=== PATIENT | female | born 1985 | race Caucasian/White ===

== ENCOUNTER 2024-01-19 16:41 | Emergency (ER) | payer OTHER, SELFPAY ==
--- NOTE | ~2024-01-19 | CT_ITS ---
EXAMINATION: CT orbit BI w con DATE: 01/19/2024 21:06 INDICATION: Right orbital infection. TECHNIQUE: Computed tomography (CT) of the orbits was performed without intravenous contrast. Automat ed exposure control and iterative reconstruction technique were employed. The dose-length product was 175.68 mGy-cm. COMPARISON: None FINDINGS: The orbits are normal. The extraocular muscles are normal. There is mild mucosal thickening in the paranasal sinuses. The mastoid air cells are normal. IMPRESSION: 1. Normal orbits. Reviewed, dictated and finalized at location E. IMPRESSION: 1. Normal orbits.
[2024-01-19 16:51] VITALS: BP 149/97; PULSE 79; RESP 18; TEMP 36.4; O2SAT 100
--- NOTE | 2024-01-19 19:47 | ED.EYEPROB ---
HPI - Eye Problem General Chief complaint: Eye Problems Stated complaint: eye sent in for labs and CT scan Time Seen by Provider: 01/19/24 19:13 History of Present Illness HPI Narrative: Patient a 38-year-old female who presents to the emergency department this evening complaining of right eye pain. Patient states that approximately 2 weeks ago she was diagnosed orbital cellulitis and finished a course of doxycycline and Keflex. Patient was seen by an eye doctor and referred to an oculoplastic specialist at [facility]. Patient states that she finished her antibiotics approximately 1 week ago and today she woke up with a red spot over her right eyelid and pain and pressure that she feels behind her eye. Patient states that when she was 1st diagnosed with the orbital cellulitis symptoms started similarly the patient believes that now they are progressing much faster than they did initially. Patient called her doctor today at [facility] who recommended that she comes to the emergency department for blood work and CT of her orbits to evaluate for orbital cellulitis and possible IV antibiotics. Patient denies any changes to her vision, however, she does state that she has been having a hard time focusing on her computer screen while working. She denies any pain extraocular movements and denies any fevers at home. Patient states that today she did have some chills. No additional symptoms or concerns at this time. Related Data Allergies Allergy/AdvReac Type Severity Reaction Status Date / Time No Known Allergies Allergy Verified 01/19/24 16:42 Review of Systems Review of Systems: All systems are reviewed and are negative unless stated otherwise in the HPI. [facility] Social History Social History Smoking status: Former smoker Alcohol intake: current Exam Narrative: General: Alert, awake, afebrile, in no acute distress. HEENT: PERRL, erythema noted to the medial aspect of the right upper eyelid, no conjunctival injection, no proptosis, no chemosis, no pain with extraocular movements, no evidence of orbital or periorbital cellulitis at this time. Cardiovascular: Regular rate and rhythm, no murmurs, rubs or gallops, no peripheral edema. Respiratory: Clear to auscultation bilaterally, no tachypnea, no wheezing, no rhonchi, no rubs, no respiratory distress. Abdomen: Soft, nontender, nondistended, no rebound, no guarding, no peritoneal signs. Musculoskeletal: No joint swelling or deformity, normal muscle tone. Skin: No rashes or petechia, no signs of infection. Psychiatric: Alert and oriented, normal behavior and judgment for situation. Neurological: Alert and oriented to person, place, and time. Follows all commands. No focal deficits, speech is clear and fluent. Course Vital Signs Vital signs: Vital Signs Temperature 97.6 F 01/19/24 16:51 Pulse Rate 79 01/19/24 16:51 Respiratory Rate 18 01/19/24 16:51 Blood Pressure 149/97 H 01/19/24 16:51 Pulse Oximetry 100 01/19/24 16:51 Oxygen Delivery Room Air 01/19/24 16:51 Temperature 97.6 F 01/19/24 16:51 Pulse Rate 73 01/19/24 20:51 Respiratory Rate 18 01/19/24 20:51 Blood Pressure 138/75 01/19/24 20:51 Pulse Oximetry 99 01/19/24 20:51 Oxygen Delivery Room Air 01/19/24 16:51 MDM - Eye Problem MDM Narrative Medical decision making narrative: The patient was evaluated by myself in the emergency department. History is obtained from patient who is an independent historian and physical exam was performed. External medical records were reviewed at this time. IV was established and pertinent tests were ordered. Laboratory results obtained revealing no acute process. Inflammatory markers were obtained including CRP and ESR noted to be within normal limits. Imaging studies obtained included CT orbits with IV contrast which was independently interpreted by me re
[2024-01-19 19:54] LABS: Basophils Absolute Auto 0.1 K/mm3 (0.0-0.1); Basophils Percent Auto 0.9 % (0.2-1.2); Eosinophils Absolute Auto 0.1 K/mm3 (0-0.3); Eosinophils Percent Auto 2.1 % (0-4.4); Hematocrit 41.7 % (37.0-47.0); Hemoglobin 13.5 g/dL (12.0-15.0); Immature Granulocyte Absolute 0.02 K/mm3 (0.00-0.031); Immature Granulocyte Percent A 0.3 % (0-0.5); Lymphocytes Absolute Auto 2.67 K/mm3 (0.9-3.2); Lymphocytes Percent Auto 39.2 % (18.3-44.2); Mean Corpuscular HGB Conc 32.4 g/dl (32-36); Mean Corpuscular Hemoglobin 31.6 pg (26-34); Mean Corpuscular Volume 97.7 fl (80-100); Monocytes Percent Auto 15.3 % (2.6-8.5); Neutrophils Absolute Auto 2.9 K/mm3 (1.3-6.7); Neutrophils Percent Auto 42.2 % (45.5-73.1); Platelet Count Result 251 k/mm3 (150-375); Red Blood Count 4.27 M/mm3 (4.2-5.4); Red Cell Distribution Width 12.4 % (11.5-14.5); White Blood Count 6.8 K/mm3 (4.5-10.0)
[2024-01-19 20:09] LABS: Alanine Aminotransferase 49 U/L (6-35); Albumin Level 4.8 g/dL (3.5-5.1); Alkaline Phosphatase 43 U/L (38-126); Anion Gap 6 mmol/L (4-12); Aspartate Amino Transferase 38 U/L (14-36); Bilirubin,Total 0.6 mg/dL (0.2-1.3); Blood Urea Nitrogen 16 mg/dL (7-17); Calcium 9.3 mg/dL (8.4-10.2); Carbon Dioxide 26 mmol/L (22-30); Chloride 104 mmol/L (98-107); Estimated CRCL calculation 91 ml/min; Estimated Glomerular Filt Rate > 60; Glucose 91 mg/dL (65-110); SPREG INTERNAL CONTROL Positive; Serum Qual hCG Negative; Sodium 136 mmol/L (137-145)
[2024-01-19 20:34] LABS: Erythrocyte Sedimentation Rate 17 mm/hr (0-20)
[2024-01-19 20:51] VITALS: BP 138/75; PULSE 73; RESP 18; O2SAT 99
[2024-01-19 21:28] LABS: CRP < 0.5 mg/dL (<1.0)
== END 2024-01-19 22:29 | disposition home or self-care (01) ==
PROVIDERS: Emergency Provider Emergency Medicine
DX: H44.001 Unspecified purulent endophthalmitis, right eye (principal); Z87.891 Personal history of nicotine dependence
CPT/HCPCS: 36415; 70481; 80053; 84703; 85025; 85652; 86140; 99284; Q9967

== ENCOUNTER 2024-04-11 13:27 | Emergency (ER) | payer OTHER, SELFPAY ==
[2024-04-11 13:31] VITALS: BP 124/73; PULSE 80; RESP 16; TEMP 36.8; O2SAT 100
--- NOTE | 2024-04-11 13:39 | ED.HEATRA ---
HPI - Head Injury General Chief complaint: Head Injury Stated complaint: head injury Time Seen by Provider: 04/11/24 13:36 History of Present Illness HPI Narrative: 38-year-old female presents to the emergency room for evaluation of head injury. Patient states she was lifting boxes when the wood door struck her on the side of the head. Injury occurred 30 minutes prior to arrival. Patient is not on any anticoagulants. Denies LOC altered mental status. Denies nausea vomiting. Denies dizziness or lightheadedness. Denies supplements. Denies vision or hearing changes. Denies neck pain. Related Data Allergies Allergy/AdvReac Type Severity Reaction Status Date / Time No Known Allergies Allergy Verified 01/19/24 16:42 Review of Systems Review of Systems: ROS unremarkable except for noted in HPI PMFSH Social History Social History Smoking status: Former smoker Alcohol intake: current Exam Narrative: GENERAL: Well-appearing, well-nourished, no physical limitations, and in no acute distress. HEAD: Normocephalic, 1 cm laceration to left side of scalp EYES: Conjunctivae normal, PERRLA and EOMI. ENT: External nose normal, Nares clear, no rhinorrhea or epistaxis. External ears normal, bilateral TMs normal bilaterally NECK: Supple. CHEST: Clear to auscultation. No respiratory distress. No wheezes rales or rhonchi. HEART: Regular rate and rhythm. No murmur heard. Normal peripheral pulses. BACK: No cervical/thoracic/lumbar tenderness, step-offs, bony abnormality; FROM EXTREMITIES: Normal range of motion. No edema. No clubbing or cyanosis SKIN: Warm, dry, no rash. No noted wounds NEURO: No focal deficits. Alert and oriented x3. MAEW. CN's II-XI intact bilaterally, normal gait PSYCH: Cooperative. Normal mood and affect. Course Vital Signs Vital signs: Vital Signs Temperature 36.8 C 04/11/24 13:31 Pulse Rate 80 04/11/24 13:31 Respiratory Rate 16 04/11/24 13:31 Blood Pressure 124/73 04/11/24 13:31 Pulse Oximetry 100 04/11/24 13:31 Temperature 36.8 C 04/11/24 13:31 Pulse Rate 80 04/11/24 13:31 Respiratory Rate 16 04/11/24 13:31 Blood Pressure 124/73 04/11/24 13:31 Pulse Oximetry 100 04/11/24 13:31 Procedures Laceration Laceration 1: Date: 04/11/24 Time: 13:54 Site: scalp Side (If applicable): right Size (cm): 1 Description: linear Depth: simple, single layer Local Anesthetic: none Pre-repair: irrigated ====== Skin Level ====== Skin layer closed with: osmar Number of sutures: 2 ====== Subcutaneous Layer ====== ====== Muscle Layer ====== ====== Tendon Layer ====== Discharge Plan Discharge Clinical Impression: Closed head injury, Laceration of scalp Patient Disposition: Home, Self-Care Condition: Stable Instructions: Antibiotic Form, Head Injury (ED) Additional Instructions: osmar will need to be removed in 7 days. He may go urgent care removed. Keep wound clean and dry. Located washer with shampoo. Under for signs of infection which include redness, swelling, pain, purulent dischar Prescriptions: No Action amoxicillin-pot clavulanate 875-125 mg tablet 1 tablet PO Q12H 10 Days Qty: 20 0RF Follow-up/Referrals: UNKNOWN,DOCTOR [Primary Care Provider] - Time of Disposition: 13:55
== END 2024-04-11 14:05 | disposition home or self-care (01) ==
LOC: ANHED 14:08
PROVIDERS: Emergency Provider Nurse Practitioner Family
DX: S01.01XA Laceration without foreign body of scalp, initial encounter (principal); Z87.891 Personal history of nicotine dependence; W22.8XXA Striking against or struck by other objects, initial encounter
CPT/HCPCS: 12001; 99283

== ENCOUNTER 2025-05-01 11:34 | Emergency (ER) | payer OTHER, SELFPAY ==
[2025-05-01 11:35] VITALS: BP 127/86; PULSE 87; RESP 16; TEMP 36.6; O2SAT 100
--- OUTSIDE RECORDS SUMMARY | 2025-05-01 12:13 | XMS_ITS | Clinical Summary ---
Author Organization [facility] Virtual Care Address [address] [place] [id number] Phone Care Team Providers Care Oil Well Service Operator Helper Name Role Phone Unknown, Notinfile Primary Care Provider Unavail able Allergies No known active allergies Medications buPROPion XL (WELLBUTRIN XL) 150 mg 24 hr tablet Take 1 tablet (150 mg total) by mouth daily Active levothyroxine (SYNTHROID) 100 mcg tablet Take 1 tablet (100 mcg total) by mouth daily Active neomycin-polymy zeyad B-dexAMETHasone (MAXITROL) 3.5 mg/g-10,000 unit/g-0.1 % ointment Apply to affected eye(s) 3 (three) times a day 06/19/2024 Active norethindrone-e .estradioL-iron (Blisovi Fe ,) 1 mg-20 mcg (21)/75 mg (7) per tablet Take 1 tablet by mouth daily 02/14/2024 Active Active Problems No known active problems Social History Tobacco Use Types Packs/Day Years Used Date Smoking Tobacco: Never Assessed Comments Unknown Sex and Gender Information Value Date Recorded Sex Assigned at Not on file Legal Sex Female 10:05 AM CDT Gender Identity Not on file Sexual Orientation Not on file Obstetrics History Last Filed Vital Signs Vital Sign Reading Time Taken Comments Blood Pressure 110/74 10/02/2024 4:52 PM ANALYSIS LEAD Pulse 72 10/02/2024 4:52 PM ANALYSIS LEAD Temperature 36.9 C (98.5 F) 10/02/2024 4:52 PM ANALYSIS LEAD Respiratory Rate 16 10/02/2024 4:52 PM ANALYSIS LEAD Oxygen Saturation 99% 10/02/2024 4:52 PM ANALYSIS LEAD Inhaled Oxygen Concentration - - Weight 86.6 kg (191 lb) 10/02/2024 4:52 PM ANALYSIS LEAD Height 177.2 cm (5' 9.75) 10/02/2024 4:52 PM CS T Body Mass Index 27.6 10/02/2024 4:52 PM ANALYSIS LEAD Plan of Treatment Health Maintenance Due Date Last Done Comments Cervical Cancer Screening 1986 Depression Screening 1986 Hepatitis C Screening 1986 Varicella Vaccines (1 of 2 - 13+ 2-dose series) 1999 Regular Well Visit/Exam 18-64 2004 HPV Vaccines (1 - 3-dose SCD M series) 2013 Influenza Vaccine (#1) 2025 DTaP/Tdap/Td Vaccine (2 - Td or Tdap) 01/05/2031 01/05/2021 Hepatitis B Screening Completed 01/05/2021 Pneumococcal vaccine <65 Aged Out No longer eligible based on patient's age to complete this topic Insurance [employer] Care Teams Oil Well Service Operator Helper Relationship Specialty Start Date End Date Unknown, Notinfile PCP - General 10/02/24
--- OUTSIDE RECORDS SUMMARY | 2025-05-01 12:13 | XMS_ITS | Clinical Summary ---
Author Organization [facility] Address [address] [place] [address] Care Team Providers Care Heel Seat Fitter Machine Name Role Phone Calixto Santos MD Primary Care Provider [phone] Source Comments [facility],non-owned Affiliates and Associated Physician Practices is amultiple site organization consisting of ambulatory clinics and hospital sitesin [place], [place], [place] and [place]. This disclosure is being madepursuant to the Care Everywhere program and may not contain all information available regarding this patient. Last updated 18.[facility] Allergies No known active allergies Medications * Be aware that medications may not be up to date on this document. Alwaysverify current medications with the patient. levothyroxine (SYNTHROID) 100 MCG tablet Take 100 mcg by mouth daily before breakfast Active buPROPion XL 24hr (WELLBUTRIN XL) 150 MG tablet Take 150 mg by mouth once daily Active Blisovi FE 10/15 1-20 MG-MCG tablet Take 1 (one) tablet by mouth once daily 4 Active neomycin-polymy zeyad-dexameth (Maxitrol) ophthalmic ointment Instill into left eye 3 times daily 3.5 g 4 Active Active Problems No known active problems Immunizations Immunization Administration Dates Next Due HEP B VACCINE, ADULT 3 DOSE 01/05/2021 MMR 01/05/2021 TDAP (7yrs+) 01/05/2021 Social History Tobacco Use Types Packs/Day Years Used Date Smoking Tobacco: Never Smokeless Tobacco: Never Comments No Sex and Gender Information Value Date Recorded Sex Assigned at Not on file Legal Sex Female 9:02 AM PROJECT CONTROLS SCHEDULER Gender Identity Not on file Sexual Orientation Not on file Last Filed Vital Signs Vital Sign Reading Time Taken Comments Blood Pressure 108/62 10/05/2017 10:57 AM PROJECT CONTROLS SCHEDULER Pulse 80 10/05/2017 10:57 AM PROJECT CONTROLS SCHEDULER Temperature 36.9 C (98.5 F) 10/05/2017 10:57 AM PROJECT CONTROLS SCHEDULER Respiratory Rate 16 10/05/2017 10:57 AM PROJECT CONTROLS SCHEDULER Oxygen Saturation 99% 10/05/2017 10:57 AM PROJECT CONTROLS SCHEDULER Inhaled Oxygen Concentration - - Weight 72.6 kg (160 lb) 10/05/2017 10:57 AM PROJECT CONTROLS SCHEDULER Height 177.8 cm (5' 10) 10/05/2017 10:57 AM PROJECT CONTROLS SCHEDULER Body Mass Index 22.96 10/05/2017 10:57 AM PROJECT CONTROLS SCHEDULER Plan of Treatment Health Maintenance Due Date Last Done Comments HIV SCREENING 2001 HEPATITIS C SCREENING 04/13/2004 PAP SMEAR 2007 HPV VACCINE (1 - 3-dose SCDM series) 2013 HEPATITIS B VACCINE (2 of 3 - 19+ 3-dose series) 02/02/2021 01/05/2021 COVID-19 VACCINE (1 - 2023-2 5 season) 2024 DEPRESSION SCREENING 09/26/2024 INFLUENZA VACCINE (#1) 2025 DTAP/TDAP/TD VACCINES (2 - T d or Tdap) 01/05/2031 01/05/2021 ZOSTER VACCINE (1 of 2) 2036 HIB VACCINE Aged Out No longer eligi ble based on patient's age to complete this topic MENINGOCOCCAL (Group B) VACC INE SHARED DECISION-MAKING Aged Out No longer eligibl e based on patient's age to complete this topic MENINGOCOCCAL GROUPS A/C/Y/W VACCINE Aged Out No longer eligible b ased on patient's age to complete this topic PNEUMOCOCCAL VACCINE Aged Out No long er eligible based on patient's age to complete this topic Insurance [facility] Address: [facility] [id number] [place] [address] Care Teams Heel Seat Fitter Machine Relationship Specialty Start Date End Date Calixto Santos MD [address] [place] [address] PCP - General Obstetrics and Gynecology 10/05/17
--- NOTE | 2025-05-01 12:33 | ECG_ITS ---
Test Date: 2025-05-01 13:13:30 Measurements Intervals [place] Rate: 82 P: 52 CA: 151 QRS: 65 QRSD: 81 T: 43 QT: 346 QTc: 406 Interpretive Statements SINUS RHYTHM BASELINE ARTIFACT- I, II, III, AVR, AVL, AVF NORMAL ECG No previous ECG available for comparison Electronically Signed On 05-01-2025 13:14:59 CDT by Sung Weldon D.O.
--- NOTE | 2025-05-01 12:51 | ED.RECABL ---
HPI - Recheck/Abnormal Lab/Rx General Chief Complaint: Recheck/Abnormal Lab/Rx <Sven Dorman APRN - Last Filed: 05/01/25 12:53> Stated Complaint: my doctor sent me to get blood <Sven Dorman APRN - Last Filed: 05/01/25 12:53> Time Seen by Provider: 05/01/25 13:40 <Sven Dorman APRN - Last Filed: 05/01/25 12:53> Focused HPI: 40-year-old female presents to the ER complaining of possible low hemoglobin. Patient sent from her OB office however labs recheck. Patient denies any black or tarry stools, vaginal bleeding and, vomiting blood, or any history of anemia. Patient reports she has been feeling lightheaded feeling she is going to pass out. Patient was told she had a hemoglobin of 7 and had lab work drawn yesterday. Patient's OB is Dr. Sherly Ryan. GENERAL: Well-appearing, well-nourished, and in no acute distress. HEAD: Normocephalic, atraumatic. CHEST: Clear to auscultation. ?No respiratory distress. HEART: Regular rate and rhythm.? NEURO: ?Alert and oriented x3. Patient screened in triage and initial orders placed.? ?Additional care and disposition to be based upon?diagnostic testing and treatment. <Sven Dorman APRN - Last Filed: 05/01/25 12:53> History of Present Illness HPI narrative: Agree with HPI. <Monroe Yo MD - Last Filed: 05/01/25 16:18> Related Data Allergies/Adverse Reactions: Allergies Allergy/AdvReac Type Severity Reaction Status Date / Time No Known Allergies Allergy Verified 05/01/25 11:39 <Sven Dorman APRN - Last Filed: 05/01/25 12:53> Review of Systems Review of Systems: All systems reviewed & are unremarkable except as noted in HPI and below <Monroe Yo MD - Last Filed: 05/01/25 16:18> Constitutional: Constitutional: Reports no additional constitutional complaints <Monroe Yo MD - Last Filed: 05/01/25 16:18> ENT: Reports system reviewed and no additional complaints, except as documented <Monroe Yo MD - Last Filed: 05/01/25 16:18> Cardiovascular: Cardiovascular: Reports no additional cardiovascular complaints <Monroe Yo MD - Last Filed: 05/01/25 16:18> Respiratory: Respiratory: Reports no additional respiratory complaints <Monroe Yo MD - Last Filed: 05/01/25 16:18> Gastrointestinal: Gastrointestinal: Reports no additional gastrointestinal complaints <Monroe Yo MD - Last Filed: 05/01/25 16:18> FOR[facility]LY [facility], [facility] Past Medical History Medical History: Medical History (Updated 05/01/25 @ 16:18 by Monroe Yo MD) Hypothyroidism <Sven Dorman APRN - Last Filed: 05/01/25 12:53> Social History Social History: Social History Smoking status: Former smoker Alcohol intake: current <Sven Dorman APRN - Last Filed: 05/01/25 12:53> Exam Narrative: GENERAL: Well-appearing, well-nourished, and in no acute distress. HEAD: Normocephalic, atraumatic. ENT: Mucous membranes moist. CHEST: Clear to auscultation. No respiratory distress. HEART: Regular rate and rhythm. Normal peripheral pulses. ABDOMEN: Soft, nontender, nondistended. EXTREMITIES: Normal range of motion. No edema. SKIN: Warm, dry, no rash. NEURO: Alert and oriented x3. PSYCH: Normal mood and affect. <Monroe Yo MD - Last Filed: 05/01/25 16:18> Course Course Emergency Course: Patient resting comfortably. No significant abnormality on lab work. No anemia requiring transfusion. Recommend follow-up with her primary care provider. <Monroe Yo MD - Last Filed: 05/01/25 16:18> Vital Signs Vital signs: Vital Signs Temperature 97.8 F 05/01/25 11:35 Pulse Rate 87 05/01/25 11:35 Respiratory Rate 16 05/01/25 11:35 Blood Pressure 127/86 05/01/25 11:35 Pulse Oximetry 100 05/01/25 11:35 Oxygen Delivery Room Air 05/01/25 11:35 Temperature 97.9 F 05/01/25 14:31 Pulse Rate 85 05/01/25 14:31 Respiratory Rate 14 05/01/25 14:31 Blood Pressure 100/77 05/01/25 14:31 Pulse Oximetry 99 05/01/25 14:31 Oxygen Delivery Room Air 05/01/25 11:35 <Sven Dorman APRN - Last Filed: 05/01/25 12:53> Vital Signs Temperature 97.8 F 05/01/25 11:35 Pulse Rate 87 05/01/25 11:35 Respiratory Rate 16 05/01/25 11:35 Blood Pressure 127/86 05/01/25 11:35 Pulse Oximetry 100 05/01/25 11:35 Oxygen Delivery Room Air 05/01/25 11:35 Temperature 97.9 F 05/01/25 14:31 Pulse Rate 85 05/01/25 14:31 Respiratory Rate 14 05/01/25 14:31 Blood Pressure 100/77 05/01/25 14:31 Pulse Oximetry 99 05/01/25 14:31 Oxygen Delivery Room Air 05/01/25 11:35 <Monroe Yo MD - Last Filed: 05/01/25 16:18> MDM - Recheck/Abnormal Lab/Rx Lab Data Result diagrams: 05/01/25 13:13 05/01/25 13:13 <Sven Dorman APRN - Last Filed: 05/01/25 12:53> Labs: Lab Results 05/01/25 05/01/25 Range/Units 13:13 13:50 WBC 7.8 (4.5-10.0) K/mm3 RBC 4.07 L (4.2-5.4) M/mm3 Hgb 12.6 (12.0-15.0) g/dL Hct 39.5 (37.0-47.0) % MCV 97.1 (80-100) fl MCH 31.0 (26-34) pg MCHC 31.9 L (32-36) g/dl RDW 12.2 (11.5-14.5) % Plt Count 239 (150-375) k/mm3 MPV 10.5 H (7.4-10.4) fl Immature Gran % (Auto) 0.3 (0-0.5) % Neut % (Auto) 55.6 (45.5-73.1) % Lymph % (Auto) 26.9 (18.3-44.2) % Bradley % (Auto) 14.7 H (2.6-8.5) % Eos % (Auto) 1.7 (0-4.4) % Baso % (Auto) 0.8 (0.2-1.2) % Lymph # (Auto) 2.09 (0.9-3.2) K/mm3 Bradley # (Auto) 1.1 H (0.1-0.6) K/mm3 Eos # (Auto) 0.1 (0-0.3) K/mm3 Baso # (Auto) 0.1 (0.0-0.1) K/mm3 Abs Immat Gran (auto) 0.02 (0.00-0.031) K/mm3 Absolute Neuts (auto) 4.3 (1.3-6.7) K/mm3 Absolute Nucleated RBC 0.000 (0.0-0.012) K/mm3 Nucleated RBC % 0.0 (0.0-0.2) % PT 14.0 (11.1-14.7) Seconds INR 1.1 APTT 28.8 (22.3-36.8) Seconds Sodium 134 L (137-145) mmol/L Potassium 4.7 (3.4-5.0) mmol/L Chloride 102 (98-107) mmol/L Carbon Dioxide 26 (22-30) mmol/L Anion Gap 6 (4-12) mmol/L BUN 15 (7-17) mg/dL Creatinine 0.82 (0.7-1.0) mg/dL Estim Creat Clear Calc 79 ml/min Estimated GFR > 60 (59 - ) Glucose 108 (65-110) mg/dL Calcium 9.5 (8.4-10.2) mg/dL Total Bilirubin 0.4 (0.2-1.3) mg/dL AST 26 (14-36) U/L ALT 16 (6-35) U/L Alkaline Phosphatase 42 (38-126) U/L Troponin I < 0.012 (0.000-0.034) ng/mL Total Protein 7.4 (6.3-8.2) g/dL Albumin 4.5 (3.5-5.1) g/dL POC Urine HCG, Qual Negative (Negative) Blood Type A Positive Antibody Screen Negative <Sven Dorman, COMMERCIAL ACCOUNT MANAGER - Last Filed: 05/01/25 12:53> Lab Results 05/01/25 05/01/25 Range/Units 13:13 13:50 WBC 7.8 (4.5-10.0) K/mm3 RBC 4.07 L (4.2-5.4) M/mm3 Hgb 12.6 (12.0-15.0) g/dL Hct 39.5 (37.0-47.0) % MCV 97.1 (80-100) fl MCH 31.0 (26-34) pg MCHC 31.9 L (32-36) g/dl RDW 12.2 (11.5-14.5) % Plt Count 239 (150-375) k/mm3 MPV 10.5 H (7.4-10.4) fl Immature Gran % (Auto) 0.3 (0-0.5) % Neut % (Auto) 55.6 (45.5-73.1) % Lymph % (Auto) 26.9 (18.3-44.2) % Bradley % (Auto) 14.7 H (2.6-8.5) % Eos % (Auto) 1.7 (0-4.4) % Baso % (Auto) 0.8 (0.2-1.2) % Lymph # (Auto) 2.09 (0.9-3.2) K/mm3 Bradley # (Auto) 1.1 H (0.1-0.6) K/mm3 Eos # (Auto) 0.1 (0-0.3) K/mm3 Baso # (Auto) 0.1 (0.0-0.1) K/mm3 Abs Immat Gran (auto) 0.02 (0.00-0.031) K/mm3 Absolute Neuts (auto) 4.3 (1.3-6.7) K/mm3 Absolute Nucleated RBC 0.000 (0.0-0.012) K/mm3 Nucleated RBC % 0.0 (0.0-0.2) % PT 14.0 (11.1-14.7) Seconds INR 1.1 APTT 28.8 (22.3-36.8) Seconds Sodium 134 L (137-145) mmol/L Potassium 4.7 (3.4-5.0) mmol/L Chloride 102 (98-107) mmol/L Carbon Dioxide 26 (22-30) mmol/L Anion Gap 6 (4-12) mmol/L BUN 15 (7-17) mg/dL Creatinine 0.82 (0.7-1.0) mg/dL Estim Creat Clear Calc 79 ml/min Estimated GFR > 60 (59 - ) Glucose 108 (65-110) mg/dL Calcium 9.5 (8.4-10.2) mg/dL Total Bilirubin 0.4 (0.2-1.3) mg/dL AST 26 (14-36) U/L ALT 16 (6-35) U/L Alkaline Phosphatase 42 (38-126) U/L Troponin I < 0.012 (0.000-0.034) ng/mL Total Protein 7.4 (6.3-8.2) g/dL Albumin 4.5 (3.5-5.1) g/dL POC Urine HCG, Qual Negative (Negative) Blood Type A Positive Antibody Screen Negative <Monroe Yo MD - Last Filed: 05/01/25 16:18> ECG Data EKG #1: ECG completion date: 05/01/25 <Monroe Yo MD - Last Filed: 05/01/25 16:18> ECG completion time: 13:13 <Monroe Yo MD - Last Filed: 05/01/25 16:18> EKG Interpretation: normal rate (82), sinus rhythm, no ST changes, normal QRS and normal QT <Monroe Yo MD - Last Filed: 05/01/25 16:18> Discharge Plan Discharge Clinical Impression: Generalized weakness, Dizziness <Sven Dorman APRN - Last Filed: 05/01/25 12:53> Patient Disposition: Home <Sven Dorman APRN - Last Filed: 05/01/25 12:53> Condition: Stable <Sven Dorman APRN - Last Filed: 05/01/25 12:53> Instructions: Weakness (ED) <Sven Dorman APRN - Last Filed: 05/01/25 12:53> Additional Instructions: You had an unremarkable evaluation in the ER. Follow-up with your primary care doctor for further treatment and evaluation. Return ER she developed chest pain, you lose consciousness, you cannot keep down food water, or you have additional concerns. <Sven Dorman APRN - Last Filed: 05/01/25 12:53> Patient Language: Kinyarwanda <Sven Dorman APRN - Last Filed: 05/01/25 12:53> Prescriptions: No Action amoxicillin-pot clavulanate 875-125 mg tablet 1 tablet PO Q12H 10 Days Qty: 20 0RF <Sven Dorman APRN - Last Filed: 05/01/25 12:53> Follow-up/Referrals: Calixto Schneider MD [Primary Care Provider] - 1 Week <Sven Dorman APRN - Last Filed: 05/01/25 12:53>
[2025-05-01 13:35] LABS: Hematocrit 39.5 % (37.0-47.0); Hemoglobin 12.6 g/dL (12.0-15.0); Immature Granulocyte Percent A 0.3 % (0-0.5); Lymphocytes Absolute Auto 2.09 K/mm3 (0.9-3.2); Mean Corpuscular HGB Conc 31.9 g/dl (32-36); Mean Corpuscular Hemoglobin 31.0 pg (26-34); Mean Corpuscular Volume 97.1 fl (80-100); Nucleated Red Blood Cells Absolute Auto 0.000 K/mm3 (0.0-0.012); Nucleated Red Blood Cells Perc 0.0 % (0.0-0.2); Platelet Count Result 239 k/mm3 (150-375); Red Blood Count 4.07 M/mm3 (4.2-5.4); White Blood Count 7.8 K/mm3 (4.5-10.0)
[2025-05-01 13:41] VITALS: RESP 16
[2025-05-01 13:46] LABS: INR 1.1; Prothrombin Time 14.0 Seconds (11.1-14.7)
[2025-05-01 13:47] LABS: Partial Thromboplastin Time 28.8 Seconds (22.3-36.8)
[2025-05-01 13:52] LABS: Alanine Aminotransferase 16 U/L (6-35); Albumin Level 4.5 g/dL (3.5-5.1); Alkaline Phosphatase 42 U/L (38-126); Anion Gap 6 mmol/L (4-12); Aspartate Amino Transferase 26 U/L (14-36); Bilirubin,Total 0.4 mg/dL (0.2-1.3); Blood Urea Nitrogen 15 mg/dL (7-17); Calcium 9.5 mg/dL (8.4-10.2); Carbon Dioxide 26 mmol/L (22-30); Chloride 102 mmol/L (98-107); Estimated CRCL calculation 79 ml/min; Estimated Glomerular Filt Rate > 60; Glucose 108 mg/dL (65-110); Potassium 4.7 mmol/L (3.4-5.0); Sodium 134 mmol/L (137-145); Total Protein 7.4 g/dL (6.3-8.2)
[2025-05-01 13:57] LABS: BEDSIDEPREGUCG Negative (Negative)
[2025-05-01 14:01] VITALS: BP 106/63; PULSE 72; RESP 13; O2SAT 98
[2025-05-01 14:03] LABS: Troponin I < 0.012 ng/mL (0.000-0.034)
--- OUTSIDE RECORDS SUMMARY | 2025-05-01 14:03 | XMS_ITS | Clinical Summary ---
Author Organization [facility] Virtual Care Address [address] [place] [phone] Phone Care Team Providers Care Communications Assistant Name Role Phone Unknown, Notinfile Primary Care [...] Comments Blood Pressure 110/74 10/02/2024 4:52 PM UX INFORMATION ARCHITECT Pulse 72 10/02/2024 4:52 PM UX INFORMATION ARCHITECT Temperature 36.9 C (98.5 F) 10/02/2024 4:52 PM UX INFORMATION ARCHITECT Respiratory Rate 16 10/02/2024 4:52 PM UX INFORMATION ARCHITECT Oxygen Saturation 99% 10/02/2024 4:52 PM UX INFORMATION ARCHITECT Inhaled Oxygen Concentration - - Weight 86.6 kg (191 lb) 10/02/2024 4:52 PM UX INFORMATION ARCHITECT Height 177.2 cm (5' 9.75) 10/02/2024 4:52 PM CS T Body Mass Index 27.6 10/02/2024 4:52 PM UX INFORMATION ARCHITECT Plan of Treatment Health Maintenance Due Date [...] patient's age to complete this topic Insurance [employer] Care Teams Communications Assistant Relationship Specialty Start Date End Date Unknown, Notinfile PCP - General 10/02/24
--- OUTSIDE RECORDS SUMMARY | 2025-05-01 14:03 | XMS_ITS | Clinical Summary ---
Author Organization [facility] Address [address] [place] [address] Care Team Providers Care Stock Blender Name Role Phone Calixto Santos MD Primary Care Provider [phone] [facility],non-owned Affiliates and Associated Physician Practices is amultiple site organization consisting of ambulatory clinics and hospital sitesin [place], [place], [place] and [place]. This disclosure is being madepursuant to the Care Everywhere program and may not contain all information available regarding this patient. Last updated 18.[facility] Allergies No known active allergies Medications * [...] on file Legal Sex Female 9:02 AM ORTHOPEDIC SPECIALIST Gender Identity Not on file Sexual Orientation Not on file Last Filed Vital Signs Vital Sign Reading Time Taken Comments Blood Pressure 108/62 10/05/2017 10:57 AM ORTHOPEDIC SPECIALIST Pulse 80 10/05/2017 10:57 AM ORTHOPEDIC SPECIALIST Temperature 36.9 C (98.5 F) 10/05/2017 10:57 AM ORTHOPEDIC SPECIALIST Respiratory Rate 16 10/05/2017 10:57 AM ORTHOPEDIC SPECIALIST Oxygen Saturation 99% 10/05/2017 10:57 AM ORTHOPEDIC SPECIALIST Inhaled Oxygen Concentration - - Weight 72.6 kg (160 lb) 10/05/2017 10:57 AM ORTHOPEDIC SPECIALIST Height 177.8 cm (5' 10) 10/05/2017 10:57 AM ORTHOPEDIC SPECIALIST Body Mass Index 22.96 10/05/2017 10:57 AM ORTHOPEDIC SPECIALIST Plan of Treatment Health Maintenance Due Date [...] age to complete this topic Insurance [employer] Care Teams Stock Blender Relationship Specialty Start Date End Date Calixto Santos MD [address] [place] [address] PCP - General Obstetrics and Gynecology 10/05/17
[2025-05-01 14:31] VITALS: BP 100/77; PULSE 85; RESP 14; TEMP 36.6; O2SAT 99
[2025-05-01 15:01] VITALS: BP 100/83; PULSE 74; RESP 15; TEMP 36.5; O2SAT 100
[2025-05-01 16:00] VITALS: BP 106/74; PULSE 82; RESP 20; TEMP 36.6; O2SAT 100
== END 2025-05-01 16:27 | disposition home or self-care (01) ==
PROVIDERS: Emergency Provider Emergency Medicine; PCP Obstetrics & Gynecology
DX: R53.1 Weakness (principal); R42 Dizziness and giddiness
CPT/HCPCS: 36415; 80053; 81025; 84484; 85025; 85610; 85730; 86850; 86900; 86901; 93005; 99284

== ENCOUNTER 2025-08-15 00:35 | Day surgery (SDC) | payer OTHER, SELFPAY ==
[2025-07-30 11:00] VITALS: BMI 24.1
--- OUTSIDE RECORDS SUMMARY | 2025-08-15 02:04 | XMS_ITS | Clinical Summary ---
Author Organization [facility] Address [address] [place] [phone] Phone Care Team Providers Care Maintenance Data Analyst Name Role Phone Unknown, Notinfile Primary Care [...] Comments Blood Pressure 110/74 10/02/2024 4:52 PM SNACK BAR CASHIER Pulse 72 10/02/2024 4:52 PM SNACK BAR CASHIER Temperature 36.9 C (98.5 F) 10/02/2024 4:52 PM SNACK BAR CASHIER Respiratory Rate 16 10/02/2024 4:52 PM SNACK BAR CASHIER Oxygen Saturation 99% 10/02/2024 4:52 PM SNACK BAR CASHIER Inhaled Oxygen Concentration - - Weight 86.6 kg (191 lb) 10/02/2024 4:52 PM SNACK BAR CASHIER Height 177.2 cm (5' 9.75) 10/02/2024 4:52 PM CS T Body Mass Index 27.6 10/02/2024 4:52 PM SNACK BAR CASHIER Plan of Treatment Health Maintenance Due Date [...] patient's age to complete this topic Insurance [facility] Care Teams Maintenance Data Analyst Relationship Specialty Start Date End Date Unknown, Notinfile PCP - General 10/02/24
--- OUTSIDE RECORDS SUMMARY | 2025-08-15 02:04 | XMS_ITS | Clinical Summary ---
Author Organization [facility] [employer] Address [address] [place] [address] Care Team Providers Care Pill Machine Operator Name Role Phone Calixto Santos MD Primary Care Provider [phone] Source Comments [facility] [employer],non-owned Affiliates and Associated Physician Practices is amultiple site organization consisting of ambulatory clinics and hospital sitesin [place], [place], [place] and [place]. This disclosure is being madepursuant to the Care Everywhere program and may not contain all information available regarding this patient. Last updated 18.[facility] [employer] Allergies No known active allergies Medications * [...] on file Legal Sex Female 9:02 AM ANESTHESIOLOGIST Gender Identity Not on file Sexual Orientation Not on file Last Filed Vital Signs Vital Sign Reading Time Taken Comments Blood Pressure 108/62 10/05/2017 10:57 AM ANESTHESIOLOGIST Pulse 80 10/05/2017 10:57 AM ANESTHESIOLOGIST Temperature 36.9 C (98.5 F) 10/05/2017 10:57 AM ANESTHESIOLOGIST Respiratory Rate 16 10/05/2017 10:57 AM ANESTHESIOLOGIST Oxygen Saturation 99% 10/05/2017 10:57 AM ANESTHESIOLOGIST Inhaled Oxygen Concentration - - Weight 72.6 kg (160 lb) 10/05/2017 10:57 AM ANESTHESIOLOGIST Height 177.8 cm (5' 10) 10/05/2017 10:57 AM ANESTHESIOLOGIST Body Mass Index 22.96 10/05/2017 10:57 AM ANESTHESIOLOGIST Plan of Treatment Health Maintenance Due Date Last Done Comments HIV SCREENING 2001 HEPATITIS C SCREENING 04/13/2004 Cervical Cancer Screening 2007 PAP SMEAR 2007 HPV VACCINE (1 - 3-dose SCDM series) 2013 PAP with HPV 2016 HEPATITIS B VACCINE (2 of 3 - 19+ 3-dose series) 02/02/2021 01/05/2021 DEPRESSION SCREENING 09/26/2024 COVID-19 VACCINE (1 - 2024-2 6 season) 2025 INFLUENZA VACCINE (#1) 2025 DTAP/TDAP/TD VACCINES (2 [...] complete this topic [place] [facility] Address: [facility] [id number] [place] [address] Care Teams Pill Machine Operator Relationship Specialty Start Date End Date Calixto Santos MD [address] [place] [address] PCP - General Obstetrics and Gynecology 10/05/17
[2025-08-15 12:11] VITALS: BP 107/84; PULSE 71; RESP 18; TEMP 36.2; O2SAT 100
[2025-08-15] MEDS: LACTATED RINGERS 1,000 ML 150 ML IV CONT (12:31)
--- NOTE | 2025-08-15 13:02 | WPDANESEPPF ---
Anes - Initial Pre Proc Eval Procedure: Operation Date: 08/15/25 13:30 Proposed Procedures p Diagnostic Colonoscopy - Jonny Castillo MD Date/Time: 08/15/25 13:02 Surgeon: Jonny Castillo MD Pre Op Diagnosis: Melena, Anemia, unspecified Patient Data Age: 40 Gender: F Height: 1.78 m Weight: 77.4 kg Last Vital Signs Temp 36.2 C L 08/15/25 12:11 Pulse 71 08/15/25 12:11 Resp 18 08/15/25 12:11 BP 107/84 08/15/25 12:11 Pulse Ox 100 08/15/25 12:11 O2 Del Method Room Air 08/15/25 12:11 Allergies Allergy/AdvReac Type Severity Reaction Status Date / Time No Known Allergies Allergy Verified 08/15/25 12:07 Home Medications ?Medication ?Instructions ?Recorded ?Confirmed ?Type bupropion HCl 150 mg 24 hr tablet, 300 mg PO DAILY 07/30/25 08/15/25 History extended release levothyroxine 100 mcg tablet 100 mcg PO DAILY 07/30/25 08/15/25 History Patient hx anesthesia problems: none Family hx anesthesia problems: none Results Review: All pre-operative results and documents have been reviewed as part of the pre-operative evaluation. [facility] Past Medical History Medical History Hypothyroidism Surgical History Surgical History (Updated 08/15/25 @ 13:02 by Calixto Ling MD) H/O laparoscopy Social History Social History Smoking status: Never smoker Alcohol intake: current Drinks per week: 2 Substance use type: does not use Living arrangements: with family Spiritual care concerns: No Anes - Eval Final PreProcedure Day of Procedure 08/15/25 13:02 Patient weight: normal Heart: regular rate and rhythm Lungs: clear to auscultation Airway: Mallampati scale class 1 Neurological: alert and oriented Last oral intake: >/= 8 hours ASA classification: II Emergent: no Anesthetic plan: proceed Anesthesia type and monitoring: general GIVS and standard monitoring Results Review: All pre-operative results and documents have been reviewed as part of the pre-operative evaluation. Informed Consent: The patient's anesthetic plan and its attendant risks and benefits were discussed with the patient/family/POA. Questions were solicited and answers provided to the satisfaction of the patient/family/POA.
--- NOTE | 2025-08-15 13:05 | PM.HPGS ---
History of Present Illness History of Present Illness Consent: Risks, benefits, and alternatives have been discussed and questions answered. Patient agrees to proceed with procedure. Chief complaint: Melena, Anemia, unspecified Narrative: Aminata Peterson is a 40 year old female with mild anemia, had colonoscopy about 5 years ago and told that had spastic colon Review of Systems Review of Systems: All systems reviewed & are unremarkable except as noted in HPI and below PMFSH Past Medical History Medical History (Updated 08/15/25 @ 13:06 by Jonny Castillo MD) Anemia Hypothyroidism Surgical History Surgical History (Updated 08/15/25 @ 13:02 by Calixto Ling MD) H/O laparoscopy Social History Social History Smoking status: Never smoker Alcohol intake: current Drinks per week: 2 Substance use type: does not use Living arrangements: with family Spiritual care concerns: No Meds Home Medications and Allergies Home Medications ?Medication ?Instructions ?Recorded ?Confirmed ?Type bupropion HCl 150 mg 24 hr tablet, 300 mg PO DAILY 07/30/25 08/15/25 History extended release levothyroxine 100 mcg tablet 100 mcg PO DAILY 07/30/25 08/15/25 History Allergies Allergy/AdvReac Type Severity Reaction Status Date / Time No Known Allergies Allergy Verified 08/15/25 12:07 Vital Signs Vital Signs - 24 hr 08/15/25 12:11 Temperature 97.1 F L Pulse Rate 71 Respiratory Rate 18 Blood Pressure 107/84 Pulse Oximetry 100 Oxygen Delivery Room Air Exam Const: General: comfortable and no acute distress HENMT: Face/Nose/Sinus: Normal nares present Eyes: General: appearance normal, both eyes and all related structures Resp: Auscultation: clear to auscultation bilaterally Cardio: Rate: regular rate Rhythm: regular rhythm GI: Inspection: non-distended GI Palp: Yes Soft to palpation Skin: General skin exam: normal color Extrem: General: normal to inspection Psych: Mental Status: mental status grossly normal Assessment and Plan Assessment and plan (1) Anemia: Code(s): D64.9 - Anemia, unspecified Status: Acute Assessment and Plan: colonoscopy
[2025-08-15 13:21] VITALS: BP 80/51; PULSE 87; RESP 19; O2SAT 100
[2025-08-15 13:23] LABS: BEDSIDEPREGUCG Negative (Negative)
[2025-08-15 13:31] VITALS: BP 97/64; PULSE 80; RESP 14; O2SAT 100
[2025-08-15 13:41] VITALS: BP 109/74; PULSE 76; RESP 14; O2SAT 100
== END 2025-08-15 13:52 | disposition home or self-care (01) ==
PROVIDERS: Referring Provider Obstetrics & Gynecology; Visit Provider Internal Medicine Gastroenterology
PROC: 0DJD8ZZ Inspection of Lower Intestinal Tract, Via Natural or Artificial Opening Endoscopic (ICD-10-PCS; CPT 45378; principal; 2025-08-15 13:30)
DX: D64.9 Anemia, unspecified (principal); K64.8 Other hemorrhoids; E03.9 Hypothyroidism, unspecified; Z98.890 Other specified postprocedural states
CPT/HCPCS: 45378; J2003; J2704; J7120